=== PATIENT | female | born 1955 | race Caucasian/White ===

== ENCOUNTER 2017-01-05 21:11 | Emergency (ER) | payer OTHER ==
[2017-01-05 21:20] VITALS: BP 126/85; PULSE 94; TEMP 98.1; BMI 23.0
--- NOTE | 2017-01-05 21:38 | PDOC ---
History of Present Illness - General History Source: Patient Exam Limitations: No Limitations - History of Present Illness Initial Comments: 01/05/17 22:15 The patient is a 61 year old female, with a significant past medical history of HTN, who presents to the emergency department with R wrist wound. Patient accidentally cut her wrist with a mandolin while cooking. Patient is R hand dominant. Patient denies any other injuries or trauma. Patient is UTD with Tetanus vaccination. Allergies: NKA Past surgical history: C section Social history: Current everyday smoker PCP: None <Teresa Magallanes - Last Filed: 01/05/17 22:15> - General History Source: Patient <Gaurang Garaz - Last Filed: 01/05/17 22:35> - General Chief Complaint: Injury Stated Complaint: LACERATION Time Seen by Provider: 01/05/17 21:38 Past History <Teresa Magallanes - Last Filed: 01/05/17 22:15> - Past Medical History HTN: Yes - Psycho/Social/Smoking Cessation Hx Suicidal Ideation: No Smoking History: Current every day smoker Number of Cigarettes Smoked Daily: 10 Information on smoking cessation initiated: No <Gaurang Garza - Last Filed: 01/05/17 22:35> - Past Medical History Allergies/Adverse Reactions: Allergies Allergy/AdvReac Type Severity Reaction Status Date / Time No Known Allergies Allergy Verified 01/05/17 21:17 Home Medications: Ambulatory Orders Cephalexin Monohydrate [Keflex -] 500 mg PO Q8H #20 capsule 01/05/17 Review of Systems - Review of Systems Able to Perform ROS?: Yes Comments:: 01/05/17 22:15 GENERAL/CONSTITUTIONAL: No fever or chills. No weakness. HEAD, EYES, EARS, NOSE AND THROAT: No change in vision. No ear pain or discharge. No sore throat. CARDIOVASCULAR: No chest pain or shortness of breath. RESPIRATORY: No cough, wheezing, or hemoptysis. GASTROINTESTINAL: No nausea, vomiting, diarrhea or constipation. GENITOURINARY: No dysuria, frequency, or change in urination. MUSCULOSKELETAL: No joint or muscle swelling or pain. No neck or back pain. SKIN: + R wrist wound. No rash NEUROLOGIC: No headache, vertigo, loss of consciousness, or change in strength/ sensation. ENDOCRINE: No increased thirst. No abnormal weight change. HEMATOLOGIC/LYMPHATIC: No anemia, easy bleeding, or history of blood clots. ALLERGIC/IMMUNOLOGIC: No hives or skin allergy. <ElpidioTeresa - Last Filed: 01/05/17 22:15> *Physical Exam - Vital Signs Last Vital Signs Temp Pulse Resp BP Pulse Ox 98.1 F 94 H 20 126/85 97 01/05/17 21:17 01/05/17 21:17 01/05/17 21:17 01/05/17 21:17 01/05/17 21:17 - Physical Exam Comments: 01/05/17 22:16 GENERAL: Awake, alert, and fully oriented, in no acute distress HEAD: No signs of trauma EYES: PERRLA, EOMI, sclera anicteric, conjunctiva clear ENT: Auricles normal inspection, hearing grossly normal, nares patent, oropharynx clear without exudates. Moist mucosa NECK: Normal ROM, supple, no lymphadenopathy, JVD, or masses LUNGS: Breath sounds equal, clear to auscultation bilaterally. No wheezes, and no crackles HEART: Regular rate and rhythm, normal S1 and S2, no murmurs, rubs or gallops ABDOMEN: Soft, nontender, normoactive bowel sounds. No guarding, no rebound. No masses EXTREMITIES: Normal range of motion, no edema. No clubbing or cyanosis. No cords, erythema, or tenderness NEUROLOGICAL: Cranial nerves II through XII grossly intact. Normal speech, normal gait SKIN: +Open wound measuring 5cm by 5cm superficial in nature. Slight oozing through the wound. Minimal tissue loss. No active bleeding. Full ROM. Muscle strength intact. Sensation intact. Normal turgor, no rashes or lesions noted. <Teresa Magallanes - Last Filed: 01/05/17 22:15> - Vital Signs Last Vital Signs Temp Pulse Resp BP Pulse Ox 98.1 F 94 H 20 126/85 97 01/05/17 21:17 01/05/17 21:17 01/05/17 21:17 01/05/17 21:17 01/05/17 21:17 <Gaurang Garza - Last Filed: 01/05/17 22:35> *DC/Admit/Observation/Transfer - Attestations Scribe Attestion: 01/05/17 22:16 Documentation prepared by Teresa Magallanes, acting as medical transcriber for Gaurang Kayla, <Teresa Magallanes - Last Filed: 01/05/17 22:15> - Discharge Dispostion Admit: No <Gaurang Garza - Last Filed: 01/05/17 22:35> Diagnosis at time of Disposition: Avulsion of skin of forearm Qualifiers: Encounter type: initial encounter Laterality: left Qualified Code(s): S51.802A - Unspecified open wound of left forearm, initial encounter - Discharge Dispostion Disposition: HOME Condition at time of disposition: Stable - Prescriptions Prescriptions: Cephalexin Monohydrate [Keflex -] 500 mg PO Q8H #20 capsule - Patient Instructions Printed Discharge Instructions: DI for Avulsion Laceration (Not Requiring Sutures) Additional Instructions: keep wound clean and dry. continue compression dressing. you may release if numbness or tingling to fingers. follow up with your doctor for a wound check, start cephalexin as prescribed. - Post Discharge Activity Work/School Note: Back to Work
--- NOTE | 2017-01-05 22:06 | PDOC ---
*Physical Exam - Vital Signs Last Vital Signs Temp Pulse Resp BP Pulse Ox 98.1 F 94 H 20 126/85 97 01/05/17 21:17 01/05/17 21:17 01/05/17 21:17 01/05/17 21:17 01/05/17 21:17 - Physical Exam General Appearance: Yes: Appropriately Dressed Extremity: positive: Other (left hand avulsion injury) Progress Note - Progress Note Progress Note: Left wrist skin avulsion injury P: last tetanus 2 year ago]] wound cannot be approximated. surgical and pressure dressing applied. will d/c home with cephalexin *DC/Admit/Observation/Transfer Diagnosis at time of Disposition: Avulsion of skin of forearm Qualifiers: Encounter type: initial encounter Laterality: left Qualified Code(s): S51.802A - Unspecified open wound of left forearm, initial encounter - Discharge Dispostion Disposition: HOME - Prescriptions Prescriptions: Cephalexin Monohydrate [Keflex -] 500 mg PO Q8H #20 capsule - Patient Instructions Printed Discharge Instructions: DI for Avulsion Laceration (Not Requiring Sutures) Additional Instructions: keep wound clean and dry. continue compression dressing. you may release if numbness or tingling to fingers. follow up with your doctor for a wound check, start cephalexin as prescribed. - Post Discharge Activity Work/School Note: Back to Work
[2017-01-05] MEDS ORDERED: ACETAMINOPHEN 325 MG TABLET (FP) PO ONE (22:29)
[2017-01-05] MEDS ORDERED: ACETAMINOPHEN 325 MG TABLET (FP) ONE (22:30)
== END 2017-01-05 22:42 | disposition home or self-care (01) ==
LOC: JER 21:11
DX: S61.511A Laceration without foreign body of right wrist, initial encounter (principal); W27.4XXA Contact with kitchen utensil, initial encounter; Y93.G1 Activity, food preparation and clean up; Y92.030 Kitchen in apartment as the place of occurrence of the external cause; I10 Essential (primary) hypertension; F17.210 Nicotine dependence, cigarettes, uncomplicated
CPT/HCPCS: 99281-25